=== PATIENT | female | born 1995 | race Two or more races ===

== ENCOUNTER 2021-10-13 00:57 | Emergency (ER) | payer OTHER ==
[~2021-10-13] VITALS: Ht 165.1 cm; Wt 67.6 kg
[2021-10-13] MEDS ORDERED: NORFLEX100MG PO (03:37)
[2021-10-13] MEDS ORDERED: NAPROXEN SODIU550 MG PO (03:37)
[2021-10-13] MEDS ORDERED: MECLIZINE HCL25 MG PO (03:37)
== END 2021-10-13 04:16 | disposition home or self-care (01) ==
LOC: ER 00:57
DX: R07.89 Other chest pain (principal); M54.9 Dorsalgia, unspecified; M79.602 Pain in left arm; R42 Dizziness and giddiness